=== PATIENT | male | born 1995 | race Caucasian/White ===

== ENCOUNTER 2017-12-13 20:31 | Emergency (ER) | payer SELFPAY ==
[~2017-12-13] VITALS: Ht 170.2 cm; Wt 72.7 kg
[2017-12-13 20:54] VITALS: BP 125/80
== END 2017-12-13 21:58 | disposition home or self-care (01) ==
LOC: EMS 20:32
DX: J06.9 Acute upper respiratory infection, unspecified (principal); Z87.891 Personal history of nicotine dependence
CPT/HCPCS: 99281